=== PATIENT | female | born 1980 | race Caucasian/White ===

== ENCOUNTER 2018-11-07 08:09 | Day surgery (SDC) | payer BC ==
[~2018-11-07 08:09] MED LIST: Lactated Ringers 1,000 ML IV SCH
--- NOTE | 2018-11-07 08:43 | PCM.PREANE ---
Preanesthetic Assessment - Anesthesia/Transfusion/Family Hx Anesthesia History: Prior Anesthesia Reaction Other Type of Anesthesia Reaction Comment: always wakes up crying Family History of Anesthesia Reaction: No Transfusion History: No Prior Transfusion(s) Intubation History: Unknown - Review of Systems General: No Symptoms Pulmonary: No Symptoms Cardiovascular: No Symptoms Gastrointestinal: Diarrhea, Other (h/o colon polyps 5 years ago) Other: Reports: None - Physical Assessment Height: 5 ft 4 in Weight: 75.75 kg ASA Class: 2 Mental Status: Alert & Oriented x3 Airway Class: Mallampati = 2 Dentition: Reports: Normal Dentition Thyro-Mental Finger Breadths: 3 Mouth Opening Finger Breadths: 3 ROM/Head Extension: Full Lungs: Clear to Auscultation, Normal Respiratory Effort Cardiovascular: Regular Rate, Regular Rhythm - Lab Values: Laboratory Last Values Urine HCG, Qual NEGATIVE (NEGATIVE) 11/07/18 08:15 - Allergies Allergies/Adverse Reactions: Allergies Allergy/AdvReac Type Severity Reaction Status Date / Time adhesive Allergy Rash Verified 11/02/18 12:29 grass pollen-perennial rye, Allergy Rash Verified 11/02/18 12:29 standar cardboard Allergy Rash Uncoded 11/02/18 12:29 - Blood Blood Available: No - Anesthesia Plan Pre-Op Medication Ordered: None - Acknowledgements Anesthesia Type Planned: MAC Pt an Appropriate Candidate for the Planned Anesthesia: Yes Alternatives and Risks of Anesthesia Discussed w Pt/Guardian: Yes Pt/Guardian Understands and Agrees with Anesthesia Plan: Yes PreAnesthesia Questionnaire Respiratory History: Reports: Other (See Below) (h/o asthma) Gastrointestinal History: Reports: 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: Musculoskeletal History: Reports: Fracture, Neck Pain, Chronic Other Musculoskeletal History: hx of fx toes Neurological History: Reports: Concussion, Other (See Below) (occasional migraines) Psychiatric History: Reports: Anxiety, Depression, PTSD Dermatologic History: Reports: Other (See Below) Other Dermatologic History: chronic rash - Past Surgical History HEENT Surgical History: Reports: Naso-Sinus Surgery Other HEENT Surgeries/Procedures: hx of fx nose repair GI Surgical History: Reports: Colonoscopy, EGD Female Surgical History: Reports: Section (x2), Tubal Ligation - SUBSTANCE USE Smoking Status *Q: Current Every Day Smoker Recreational Drug Use History: No - HOME MEDS Home Medications: Home Meds Cholecalciferol (Vitamin D3) [Vitamin D3] 5,000 unit PO DAILY 11/02/18 [History] Cyanocobalamin (Vitamin B-12) [Cyanocobalamin Injection] 1,000 mcg IM ASDIRECTED 11/02/18 [History] FLUoxetine HCl [Fluoxetine HCl] 40 mg PO DAILY 11/02/18 [History] LORazepam 0.5 mg PO ASDIRECTED PRN 11/02/18 [History] busPIRone [Buspar] 10 mg PO BID 11/02/18 [History] - CURRENT (IN HOUSE) MEDS Current Meds: Current Medications Lactated Ringer's (Ringers, Lactated) 1,000 mls @ 125 mls/hr IV ASDIRECTED FERNANDA
[2018-11-07] MEDS ORDERED: Lactated Ringers 1,000 ML IV SCH (09:45)
--- NOTE | 2018-11-07 09:46 | PCM.OPNOTE ---
- General Post-Op/Procedure Note Date of Surgery/Procedure: 11/07/18 Operative Procedure(s): Colonoscopy Pre Op Diagnosis: Personal history of colon polyps. Intermittent rectal bleeding. Post-Op Diagnosis: Mild sigmoid diverticulosis Anesthesia Technique: MAC (ASA II) Primary Surgeon: Boby Gibson Condition: Good Free Text/Narrative:: DICTATION [id number] CPT CODE 88494
--- NOTE | 2018-11-07 10:04 | PCM.POSTAN ---
POST ANESTHESIA ASSESSMENT - MENTAL STATUS Mental Status: Alert, Oriented - VITAL SIGNS Vital Signs: Last Vital Signs Temp 37.1 C 11/07/18 08:20 Pulse 73 11/07/18 09:58 Resp 9 L 11/07/18 09:58 BP 99/74 11/07/18 09:58 Pulse Ox 100 11/07/18 09:58 - RESPIRATORY Respiratory Status: Respiratory Rate WNL, Airway Patent, O2 Saturation Stable - CARDIOVASCULAR CV Status: Pulse Rate WNL, Blood Pressure Stable - GASTROINTESTINAL GI Status: No Symptoms - PAIN Pain Score: 0 - POST OP HYDRATION Hydration Status: Adequate & Stable - OBSERVATIONS Free Text/Narrative:: no anesthesia problems
[2018-11-07] MEDS ORDERED: Propofol 200 MG/20 ML SDV ONE ×2 (10:20→10:21)
[2018-11-07] MEDS ORDERED: Midazolam 1 MG/ML 2 ML SDV ONE (10:20)
--- NOTE | 2018-11-07 10:24 | PCM48HPAN ---
Post Anesthesia Note - EVALUATION WITHIN 48HRS OF ANESTHETIC Vital Signs in Normal Range: Yes Patient Participated in Evaluation: Yes Respiratory Function Stable: Yes Airway Patent: Yes Cardiovascular Function Stable: Yes Hydration Status Stable: Yes Pain Control Satisfactory: Yes Nausea and Vomiting Control Satisfactory: Yes Mental Status Recovered: Yes Vital Signs: Last Vital Signs Temp 36.2 C 11/07/18 10:09 Pulse 70 11/07/18 10:09 Resp 16 11/07/18 10:09 BP 117/58 L 11/07/18 10:09 Pulse Ox 100 11/07/18 10:09 - COMMENTS/OBSERVATIONS Free Text/Narrative:: no anesthesia problems
--- NOTE | 2018-11-07 15:53 | OR ---
SURGEON: Boby Gibson M.D. DATE OF PROCEDURE: 11/07/2018 OPERATION PERFORMED: Colonoscopy. PRIMARY SURGEON: Boby Gibson M.D. ANESTHESIA: MAC. ASA CLASSIFICATION: II. PREOPERATIVE DIAGNOSIS: Personal history of colon polyps. POSTOPERATIVE DIAGNOSES: 1. Mild sigmoid diverticulosis. 2. Intermittent rectal bleeding. DESCRIPTION OF PROCEDURE: The patient was taken to the endoscopy room and positioned on the endoscopy table in the left lateral decubitus position. Time-out was called for appropriate identification of the patient and procedure. Monitored anesthesia care was provided. The colonoscope was inserted into the rectum and advanced with minimal difficulty to the cecum where the colonoscope was retroflexed to visualize the ascending colon from below. I was able to look inside the ileocecal valve, but not truly cannulate it. The cecum, ascending colon, hepatic flexure, transverse colon, splenic flexure, and descending colon showed no tumors, polyps, diverticula, or angiodysplastic changes. A few small scattered diverticula were noted in the sigmoid colon. No stricture, spasm, or bleeding was noted. The colonoscope was withdrawn to the rectum and retroflexed to visualize the anal orifice from above. Again, no tumors or polyps were seen. There were no acute hemorrhoidal changes. The colonoscope was then straightened, the rectum aspirated, and the colonoscope removed. The patient tolerated the procedure well and was taken to recovery room in stable condition. SAFIA BOGGS /[id number]
== END 2018-11-07 10:28 | disposition home or self-care (01) ==
LOC: MW.SDS 08:09
PROVIDERS: ATTEND Surgery
DX: Z12.11 Encounter for screening for malignant neoplasm of colon (principal); K57.30 Diverticulosis of large intestine without perforation or abscess without bleeding; K62.5 Hemorrhage of anus and rectum; F41.9 Anxiety disorder, unspecified; F32.9 Major depressive disorder, single episode, unspecified; J45.909 Unspecified asthma, uncomplicated; F17.210 Nicotine dependence, cigarettes, uncomplicated; Z86.010 Personal history of colon polyps; Z88.8 Allergy status to other drugs, medicaments and biological substances; Z91.048 Other nonmedicinal substance allergy status; Z79.899 Other long term (current) drug therapy; Z91.09 Other allergy status, other than to drugs and biological substances
CPT/HCPCS: 45378; 81025; J2250; J2704; J7120

== ENCOUNTER 2021-01-17 08:18 | Day surgery (SDC) | payer BC ==
[2021-01-17] MEDS ORDERED: fentaNYL 100 MCG/2 ML SDV ONE (08:48)
--- NOTE | 2021-01-17 08:57 | PCM.PREANE ---
Preanesthetic Assessment - Procedure Proposed Procedure: EGD - Anesthesia/Transfusion/Family Hx Anesthesia History: Prior Anesthesia Without Reaction Other Type of Anesthesia Reaction Comment: "I wake up shaking and crying" Family History of Anesthesia Reaction: No Transfusion History: No Prior Transfusion(s) Intubation History: Unknown - Review of Systems General: No Symptoms Pulmonary: No Symptoms (Smokes 1/2 PPD, Asthma as a child) Cardiovascular: No Symptoms Gastrointestinal: No Symptoms Neurological: No Symptoms Other: Reports: None - Physical Assessment NPO Status Date: 01/16/21 NPO Status Time: 23:00 Vital Signs: Last Vital Signs Temp 96.8 F L 01/17/21 08:34 Pulse 78 01/17/21 08:34 Resp 14 01/17/21 08:34 BP 120/71 01/17/21 08:34 Pulse Ox 96 01/17/21 08:34 Height: 5 ft 4 in Weight: 76.204 kg ASA Class: 2 Mental Status: Alert & Oriented x3 Airway Class: Mallampati = 2 Dentition: Reports: Normal Dentition Thyro-Mental Finger Breadths: 3 Mouth Opening Finger Breadths: 3 ROM/Head Extension: Full Lungs: Clear to Auscultation, Normal Respiratory Effort Cardiovascular: Regular Rate, Regular Rhythm - Lab Values: Laboratory Last Values Urine HCG, Qual NEGATIVE (NEGATIVE) 01/17/21 08:30 - Allergies Allergies/Adverse Reactions: Allergies Allergy/AdvReac Type Severity Reaction Status Date / Time adhesive Allergy Rash/itch Verified 01/14/21 12:32 grass pollen-perennial rye, Allergy "welts" Verified 01/14/21 12:32 standar lactose Allergy Stomach Verified 01/14/21 12:32 Upset Pork/Porcine Containing Allergy Stomach Verified 01/14/21 12:32 Products Upset cardboard Allergy "welts" Uncoded 01/14/21 12:32 - Acknowledgements Anesthesia Type Planned: General Anesthesia Pt an Appropriate Candidate for the Planned Anesthesia: Yes Alternatives and Risks of Anesthesia Discussed w Pt/Guardian: Yes Pt/Guardian Understands and Agrees with Anesthesia Plan: Yes PreAnesthesia Questionnaire HEENT History: Reports: None Cardiovascular History: Reports: None Respiratory History: Other Respiratory History: asthma as a child Gastrointestinal History: Reports: Colon Polyp, Other (See Below) Other Gastrointestinal History: upper abd pain Genitourinary History: Reports: None 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: Musculoskeletal History: Reports: Fracture Other Musculoskeletal History: hx of fx toes Neurological History: Reports: None Psychiatric History: Reports: Anxiety, Depression, PTSD Endocrine/Metabolic History: Reports: None Hematologic History: Reports: None Immunologic History: Reports: None Oncologic (Cancer) History: Reports: None Dermatologic History: Reports: None - Past Surgical History Head Surgeries/Procedures: Reports: None HEENT Surgical History: Reports: Naso-Sinus Surgery, Other (See Below) Other HEENT Surgeries/Procedures: hx of repair of fx nose Cardiovascular Surgical History: Reports: None Respiratory Surgical History: Reports: None GI Surgical History: Reports: Colonoscopy, EGD Female Surgical History: Reports: Section, Tubal Ligation Endocrine Surgical History: Reports: None Neurological Surgical History: Reports: None Musculoskeletal Surgical History: Reports: None Oncologic Surgical History: Reports: None Dermatological Surgical History: Reports: None - SUBSTANCE USE Tobacco Use Status *Q: Current Every Day Tobacco User Tobacco Use Within Last Twelve Months: Cigarettes - HOME MEDS Home Medications: Home Meds Cholecalciferol (Vitamin D3) [Vitamin D3] 5,000 unit PO DAILY 11/02/18 [History] Cyanocobalamin (Vitamin B-12) [Cyanocobalamin Injection] 1,000 mcg IM WEEKLY 11/02/18 [History] FLUoxetine HCl [Fluoxetine HCl] 40 mg PO DAILY 11/02/18 [History] LORazepam 0.5 mg PO ASDIRECTED PRN 11/02/18 [History] busPIRone [Buspar] 20 mg PO DAILY 11/02/18 [History] Esomeprazole [NexIUM] 10 mg PO ASDIRECTED PRN 01/14/21 [History] Eszopiclone [Lunesta] 1 mg PO BEDTIME PRN 01/14/21 [History] Hyoscyamine Sulfate 0.125 mg PO DAILY 01/14/21 [History] Phentermine HCl 30 mg PO DAILY 01/14/21 [History] traMADol HCl [Tramadol HCl] 50 mg PO ASDIRECTED PRN 01/14/21 [History] - CURRENT (IN HOUSE) MEDS Current Meds: Current Medications Lactated Ringer's (Ringers, Lactated) 1,000 mls @ 125 mls/hr IV ASDIRECTED FERNANDA Last Admin: 01/17/21 08:39 Dose: 125 mls/hr Documented by: Discontinued Medications Fentanyl (Fentanyl 100 Mcg/2 Ml Sdv) Confirm Administered Dose 100 mcg .ROUTE .[employer] Stop: 01/17/21 08:49
[2021-01-17] MEDS ORDERED: Lidocaine 2% 5 ML SDV ONE (09:14)
--- NOTE | 2021-01-17 09:52 | PCM.OPNOTE ---
- General Post-Op/Procedure Note Date of Surgery/Procedure: 01/17/21 Operative Procedure(s): Esophagogastroduodenoscopy with duodenal and gastric biopsies Pre Op Diagnosis: Epigastric pain. Fatty food intolerance with normal hepatobiliary scan. Lactose intolerance. Post-Op Diagnosis: Mild to moderate gastritis. No acute ulcerations. Anesthesia Technique: MAC (ASA II) Primary Surgeon: Boby Gibson Rn Radiation Oncology: Barry Love Condition: Good Free Text/Narrative:: DICTATION 378003 CPT CODE [id number]
--- NOTE | 2021-01-17 09:55 | PCM.POSTAN ---
POST ANESTHESIA ASSESSMENT - MENTAL STATUS Mental Status: Alert, Oriented - VITAL SIGNS Vital Signs: Last Vital Signs Temp 98.8 F 01/17/21 09:46 Pulse 74 01/17/21 09:52 Resp 12 01/17/21 09:52 BP 106/68 01/17/21 09:52 Pulse Ox 92 L 01/17/21 09:52 - RESPIRATORY Respiratory Status: Respiratory Rate WNL, Airway Patent, O2 Saturation Stable - CARDIOVASCULAR CV Status: Pulse Rate WNL, Blood Pressure Stable - GASTROINTESTINAL GI Status: No Symptoms - PAIN Pain Score: 0 - POST OP HYDRATION Hydration Status: Adequate & Stable
[2021-01-17] MEDS ORDERED: Lactated Ringers 1,000 ML IV SCH (10:00)
--- NOTE | 2021-01-17 10:03 | PCM48HPAN ---
Post Anesthesia Note - EVALUATION WITHIN 48HRS OF ANESTHETIC Vital Signs in Normal Range: Yes Patient Participated in Evaluation: Yes Respiratory Function Stable: Yes Airway Patent: Yes Cardiovascular Function Stable: Yes Hydration Status Stable: Yes Pain Control Satisfactory: Yes Nausea and Vomiting Control Satisfactory: Yes Mental Status Recovered: Yes Vital Signs: Last Vital Signs Temp 98.8 F 01/17/21 09:46 Pulse 69 01/17/21 09:57 Resp 10 L 01/17/21 09:57 BP 112/74 01/17/21 09:57 Pulse Ox 95 01/17/21 09:57 - COMMENTS/OBSERVATIONS Free Text/Narrative:: Pt doing well post-op. VSS. No apparent anesthetic complications. Dr. Marlon Todd
--- NOTE | 2021-01-17 12:08 | OR ---
SURGEON: Boby Gibson M.D. DATE OF PROCEDURE: 01/17/2021 OPERATION PERFORMED: Esophagogastroduodenoscopy with duodenal and gastric biopsies. PRIMARY SURGEON: Boby Gibson M.D. 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 ANESTHESIA: MAC. ASA CLASSIFICATION: II. PREOPERATIVE DIAGNOSIS: Abdominal pain with lactose and fatty food intolerance. POSTOPERATIVE DIAGNOSES: 1. Mild duodenitis. 2. Moderate gastritis. DESCRIPTION OF PROCEDURE: Patient was taken to the endoscopy room, positioned on the endoscopy table in the supine position. Time-out was called for appropriate identification of the patient and procedure. Monitored anesthesia care was provided. Bite block was placed between the patient's teeth. The gastroscope was inserted through the bite block into the oropharynx and advanced without difficulty through the esophagus and stomach into the duodenum where examination was now carried out in a retrograde fashion. Given her history of lactose intolerance, random duodenal biopsies were obtained. I did not see any acute inflammatory changes in the duodenum nor were there any duodenal ulcers. The gastroscope was withdrawn to the distal stomach which did show mild to moderate gastritis. Antral biopsies were obtained to look for the presence of Helicobacter pylori. The gastroscope was retroflexed to visualize the proximal stomach and greater and lesser curvatures. Other than a [id number] gastritis, no ulcerations were noted. No gastric polyps were encountered and there was no evidence of a hiatal hernia. The gastroscope was then straightened and slowly withdrawn, carefully visualizing the greater and lesser curvatures. Again, no ulcerations were noted. The GE junction was well defined and showed no acute inflammatory changes. The esophagus itself demonstrated good contractility. No mid or proximal lesions were identified. The vocal cords were briefly visualized as the scope was withdrawn. The vocal cords were noted to move symmetrically and did not show any inflammatory changes or polyps. The gastroscope was then removed with the patient having tolerated the procedure well. She was taken to recovery room in satisfactory condition. SAFIA / AMBROSE /[id number]
== END 2021-01-17 10:27 | disposition home or self-care (01) ==
LOC: MW.SDS 08:18
PROVIDERS: ATTEND Surgery
DX: K29.50 Unspecified chronic gastritis without bleeding (principal); K29.80 Duodenitis without bleeding; K31.89 Other diseases of stomach and duodenum; K31.A0 Gastric intestinal metaplasia, unspecified; K90.49 Malabsorption due to intolerance, not elsewhere classified; E73.9 Lactose intolerance, unspecified; F41.9 Anxiety disorder, unspecified; J45.909 Unspecified asthma, uncomplicated; F17.210 Nicotine dependence, cigarettes, uncomplicated; F32.A Depression, unspecified; Z79.899 Other long term (current) drug therapy; Z98.890 Other specified postprocedural states
CPT/HCPCS: 43239; 81025; J7120; 00731